=== PATIENT | female | born 1970 ===

== ENCOUNTER 2024-01-28 06:00 | Day surgery (SDC) | payer OTHER ==
[2024-01-21 08:57] LABS: MEAN CELL VOLUME 91.8 fL (80.00-100.00); MEAN CORPUSCULAR HEMOGLOBIN 31.3 pg (27.00-32.0); MEAN CORPUSCULAR HGB CONC 34.1 g/dl (32.0-36.0); PLATELET COUNT 360 K/uL (150-450); RED BLOOD COUNT 4.46 M/uL (4.00-6.00); RED CELL DISTRIBUTION WIDTH 13.6 % (11.5-14.5)
[2024-01-21 09:21] LABS: PH,URINE 7.5 (5.0-8.0); URINE APPEARANCE Cloudy; URINE BILIRRUBIN Negative (NEGATIVE); URINE BLOOD Trace; URINE COLOR Yellow; URINE GLUCOSE Negative (NEGATIVE); URINE KETONE Negative (NEGATIVE); URINE LEUKOCYTE Negative; URINE NITRATE Negative; URINE PROTEIN Negative (NEGATIVE); URINE UROBILINOGEN 0.2 E.U./dl
[2024-01-21 09:24] LABS: INR 0.96; PARTIAL THROMBOPLASTIN TIME 28.5 SECONDS (22.0-34.0); PROTHROMBIN TIME 10.5 SECONDS (9.0-11.5)
[2024-01-21 09:26] LABS: URINE BACTERIA 221.7 uL (0.0-1933); URINE EPITHELIAL CELLS 2.4 uL (0.0-38.8); URINE RBC 21.3 uL (0.0-20.8); URINE WBC 4.1 uL (0.0-23.2)
[2024-01-21 10:04] LABS: ALBUMIN 3.9 gm/dL (3.4-5.0); BILIRUBIN TOTAL 0.29 mg/dL (0.3-1.2); CALCIUM 10.5 mg/dL (8.5-10.1); CREATININE SERUM 0.86 mg/dL (0.55-1.02); GFR 69.02; GLOBULINA 3.9 G/DL (2.4-3.5); POTASSIUM 5.14 mEq/L (3.5-5.1); TOTAL PROTEIN 7.8 gm/dL (6.4-8.2); TSH 2.57 uIU/mL (0.358-3.74)
[2024-01-28] MEDS ORDERED: CEFOXITIN SODIUM 2,000 MG VIAL IV ONE ×2 (07:37→08:56)
[2024-01-28] MEDS ORDERED: POVIDONE-IODINE 118 ML BOTT TOP ONE ×2 (08:23→09:16)
[2024-01-28] MEDS ORDERED: MORGIDOX100 MG PO (10:12)
[2024-01-28] MEDS ORDERED: TRAMADOL HCL E200 M1 PO (10:12)
[2024-01-28] MEDS ORDERED: MORPHINE SULFATE 4 MG/ML VIAL IV PRN (10:15)
[2024-01-28] MEDS ORDERED: PROMETHAZINE HCL 50 MG/ML AMPUL IM ONE (10:15)
== END 2024-01-28 13:45 | disposition home or self-care (01) ==
LOC: CIR.AMB 06:00
PROVIDERS: ATTEND Obstetrics & Gynecology
DX: D25.0 Submucous leiomyoma of uterus (principal); N84.0 Polyp of corpus uteri; N95.0 Postmenopausal bleeding; Z88.6 Allergy status to analgesic agent; Z88.1 Allergy status to other antibiotic agents; J45.909 Unspecified asthma, uncomplicated; F41.9 Anxiety disorder, unspecified; G43.909 Migraine, unspecified, not intractable, without status migrainosus

== ENCOUNTER 2025-02-22 07:49 | Inpatient (IN) | payer OTHER ==
[~2025-02-22] VITALS: Wt 66.7 kg
[~2025-02-22 07:49] MED LIST: MORGIDOX100 MG PO; TRAMADOL HCL E200 M1 PO
[2025-02-22] MEDS ORDERED: TRELEGY ELLIPT1 EAC1 IH (07:56)
[2025-02-22] MEDS ORDERED: COZAAR50 MG PO (07:57)
[2025-02-22 08:45] LABS: BASO % 1.3 % (0.1-1.2); EOS # 0.21 (0.04-0.54); EOS % 3.8 % (0.7-7.0); LYMPH # 2.08 (1.18-3.74); LYMPH % 37.6 % (19.3-53.1); MEAN PLATELET VOLUME 9.90 fl (9.4-12.4); MONO # 0.43 (0.24-0.82); MONO % 7.8 % (4.7-12.5); NEUT # 2.73 (1.56-6.13); NEUT % 49.3 % (34.0-71.1); RED CELL DISTRIBUTION WIDTH 12.3 % (11.6-14.4)
[2025-02-22 08:58] LABS: URINE APPEARANCE Clear; URINE BILIRRUBIN Negative (NEGATIVE); URINE BLOOD Trace; URINE COLOR Yellow; URINE GLUCOSE Negative (NEGATIVE); URINE KETONE Negative (NEGATIVE); URINE LEUKOCYTE Negative; URINE NITRATE Negative; URINE PROTEIN Negative (NEGATIVE); URINE UROBILINOGEN 0.2 E.U./dl
[2025-02-22 08:59] LABS: URINE BACTERIA 1365.3 uL (0.0-1933); URINE EPITHELIAL CELLS 19.3 uL (0.0-38.8); URINE RBC 11.2 uL (0.0-20.8); URINE WBC 4.7 uL (0.0-23.2)
[2025-02-22 09:03] LABS: URINE CAST 0.29 uL (0.0-1.40)
[2025-02-22 09:05] LABS: INR 0.99
[2025-02-22 09:31] LABS: ALT/SGPT 23.0 U/L (12-78); AST/SGOT 18.0 U/L (15-37); BILIRUBIN TOTAL 0.36 mg/dL (0.3-1.2); BUN CREA RATIO 14.0 (7.0-25.0); CREATININE SERUM 0.92 mg/dL (0.55-1.02); GFR 63.61; GLOBULINA 3.4 G/DL (2.4-3.5); GLUCOSE FASTING 99.0 mg/dL (65-100); OSMOLALITY SERUM 285.0 MOSM/KG (275-295); TSH 2.1 uIU/mL (0.358-3.74)
[2025-03-02] MEDS ORDERED: POVIDONE-IODINE 118 ML BOTT TOP ONE (06:48)
[2025-03-02] MEDS ORDERED: CEFOXITIN SODIUM 2,000 MG VIAL IV ONE (06:49)
[2025-03-02] MEDS ORDERED: SUGAMMADEX SODIUM 200 MG/2 ML VIAL IV ONE (09:24)
[2025-03-02] MEDS ORDERED: MORPHINE SULFATE 4 MG/ML CARTRIDGE IV SCH (09:42)
[2025-03-02] MEDS ORDERED: TRAMADOL HCL 50 MG TABLET PO PRN (09:45)
[2025-03-02] MEDS ORDERED: RINGERS SOLUTION,LACTATED 1,000 ML IV SCH (09:45)
[2025-03-02 11:11] LABS: BASO % 0.2 % (0.1-1.2); EOS # 0.02 (0.04-0.54); EOS % 0.1 % (0.7-7.0); LYMPH # 1.87 (1.18-3.74); LYMPH % 10.6 % (19.3-53.1); MEAN PLATELET VOLUME 9.80 fl (9.4-12.4); MONO # 1.03 (0.24-0.82); MONO % 5.8 % (4.7-12.5); NEUT # 14.66 (1.56-6.13); NEUT % 82.9 % (34.0-71.1); RED CELL DISTRIBUTION WIDTH 12.5 % (11.6-14.4)
[2025-03-02] MEDS ORDERED: ONDANSETRON HCL 2 MG/ML VIAL ONE (11:34)
[2025-03-02 11:58] VITALS: BP 120/73
[2025-03-02] MEDS ORDERED: PROMETHAZINE HCL 50 MG/ML AMPUL IM SCH (12:00)
[2025-03-02 18:45] VITALS: BP 140/77
[2025-03-03 00:44] VITALS: BP 143/76
[2025-03-03 04:30] VITALS: BP 140/80
[2025-03-03 08:00] VITALS: BP 130/72
[2025-03-03] MEDS ORDERED: TRAMADOL HCL E100 M1 PO (09:02)
== END 2025-03-03 11:41 | disposition home or self-care (01) | DRG 743 ==
LOC: OB/GYN 03-02 06:00 → O/R 03-02 06:00 → SURH 03-02 08:00 → OB/GYN 03-02 11:55
PROVIDERS: ADMIT Obstetrics & Gynecology; ATTEND Obstetrics & Gynecology
PROC: 0UT77ZZ Resection of Bilateral Fallopian Tubes, Via Natural or Artificial Opening (ICD-10-PCS; 2025-03-02)
PROC: 0UT27ZZ Resection of Bilateral Ovaries, Via Natural or Artificial Opening (ICD-10-PCS; 2025-03-02)
PROC: 0JQC0ZZ Repair Pelvic Region Subcutaneous Tissue and Fascia, Open Approach (ICD-10-PCS; 2025-03-02)
PROC: 0USG0ZZ Reposition Vagina, Open Approach (ICD-10-PCS; 2025-03-02)
PROC: 0TJB8ZZ Inspection of Bladder, Via Natural or Artificial Opening Endoscopic (ICD-10-PCS; 2025-03-02)
PROC: 0UT97ZZ Resection of Uterus, Via Natural or Artificial Opening (ICD-10-PCS; principal; 2025-03-02 10:30)
DX: D25.0 Submucous leiomyoma of uterus (principal); N80.03 Adenomyosis of the uterus; D50.0 Iron deficiency anemia secondary to blood loss (chronic); N92.4 Excessive bleeding in the premenopausal period